=== PATIENT | male | born 1985 | race Caucasian/White ===

== ENCOUNTER 2016-10-15 09:23 | Inpatient (IN) | payer OTHER ==
[~2016-10-15] VITALS: Ht 180.3 cm; Wt 79.5 kg
--- NOTE | ~2016-10-15 | INDIVTXPL2 ---
"PATIENT: KRISTOPHER LANCASTER | | [facility] UNIT #: [id number] | [address] AGE/SEX: 31 M : 85 | [address] | [place] [address] ADMIT/REG DATE: 10/15/16 | ROOM: [facility] LOC: ADTC | ADTC | Individualized Treatment Plan DATE: 10/22/16 Problem Statement/Issue Identified: Client continues to use alcohol & drugs despite ongoing negative consequences. Goal: Client is to learn about alcoholism/drug addiction, identifying consequences of his use and learn how to work a stronger AA/NA program of recovery. Objectives/Activities to achieve goal: 1. Client is to fill out Getting Started and Step 1 packets, identifying 15 ways his use hurt others/self. Share with counselor and share selected pages in group. Due Date: 10/24/16 Complete: Incomplete: 2. Client is to get #'s of sponsors and call them weekly while in treatment. Report progress to counselor. (ask if they will help you work the steps) Due Date: ongoing Complete: Incomplete: 3. Client is to attend and Talk at AA/NA meetings, read and highlight in Big Book to make it a tool. Share progress with counselor. Due Date: ongoing Complete: Incomplete: Client Signature Date Counselor Signaure: Date Outcome/Measurement of Progress Towards Goal: Counselor Signature: Date "
--- NOTE | ~2016-10-15 | INDIVTXPL2 ---
"PATIENT: KRISTOPHER LANCASTER | | [facility] UNIT #: [id number] | [address] AGE/SEX: 31 M : 85 | [address] | [place] [address] ADMIT/REG DATE: 10/15/16 | ROOM: [facility] LOC: ADTC | ADTC | Individualized Treatment Plan DATE: 10/24/16 Problem Statement/Issue Identified: Client struggled with anxiety around crowds, and his self esteem/self confidence was damaged which can lead to desire to use or avoidance. Goal: Client is to build up his self esteem and self confidence, addressing anxiety issue to help strengthen his recovery. Objectives/Activities to achieve goal: 1. Client is to write list of 10 good qualities about himself and 5-10x that he was proud of himself to overcome anxiety. Share with counselor. Due Date: 10/31/16 Complete: Incomplete: 2. Client is to interview 7 peers and 3 staff to name 2 good qualities they see in him as he adds them to his list. Share with counselor. Due Date: 10/31/16 Complete: Incomplete: 3. Client can do EMDR on memory of 4th grade anxiety to help resolve anxiety issues. See counselor notes. Due Date: 11/07/16 Complete: Incomplete: Client Signature Date Counselor Signaure: Date Outcome/Measurement of Progress Towards Goal: Counselor Signature: Date "
--- NOTE | ~2016-10-15 | CLPRLASSUM ---
"PATIENT: KRISTOPHER LANCASTER | | [facility] UNIT #: [id number] | [address] AGE/SEX: 31 M : 85 | [address] | [place] [address] ADMIT/REG DATE: 10/15/16 | ROOM: [facility] LOC: ADTC | ADTC | Client Problem List/Assessment Summary Date: 10/22/16 Problems identified by the client: alcohol/drug addiction, family, relapse prevention, self-esteem, being healthy in relationship Problems identified by significant others: addiction, be more involved with family/kids Client's Strengths: good worker, friendly, good morals Problem List: Code: T Client continues to use alcohol & drugs despite ongoing negative consequences. Code: T Client is experiencing family & significant other discord and distancing as a result of past alcohol & drug usage. Code: T Client relapsed/returned to alcohol & drug usage after previous treatment attempts. Code: T Client needs to identify ways to improve self esteem to help maintain watermaster sobriety from all mood altering substances. Code Valadez: T: to be addressed during course of treatment O: problem noted, expected to resolve itself with abstinence--specific tx plan not required R: problem noted, will be referred upon discharge PRIMARY COUNSELOR: Laverne Salomon"
--- NOTE | ~2016-10-15 | TXPLANREV ---
"PATIENT: KRISTOPHER LANCASTER | | [facility] UNIT #: [id number] | [address] AGE/SEX: 31 M : 85 | [address] | [place] [address] ADMIT/REG DATE: 10/15/16 | ROOM: [facility] LOC: ADTC | ADTC | Treatment Plan/Staffing Review Date: 10/29/16 Treatment plan was reviewed and determined appropriate as written: yes, client is working on self-esteem assignments and will be doing EMDR therapy Treatment plan was reviewed and the following changes/addition/deletions are necessary: Discharge plans were reviewed and determined appropriate as previously documented: Discharge plans were reviewed and determined to be as follows: Client is to discharge on 11/12/16, will return to [facility] (has job) and is being referred to our [place] office with Colton Meneses for aftercare which is [address]. Also is to attend AA/NA 3x/week and call sponsor 3-7x/week. Other pertinent issues discussed during this staffing review include: Clients aftercare was discussed and he has completed the Family program with his S.O. 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 Staff Present: Florence Valdovinos, Trice Vela, Colton Meneses, Radha Wolf, Luis Asher PRIMARY COUNSELOR: Laverne Salomon Client Signature Counselor Signature Date Time "
--- NOTE | ~2016-10-15 | TXPLANREV ---
"PATIENT: KRISTOPHER LANCASTER | | [facility] UNIT #: [id number] | [address] AGE/SEX: 31 M : 85 | [address] | [place] [address] ADMIT/REG DATE: 10/15/16 | [facility]: [facility] | ADTC | Treatment Plan/Staffing Review Date: 11/05/16 Treatment plan was reviewed and determined appropriate as written: Client is working on relapse prevention and is to call sponsor and read spirituality book. Treatment plan was reviewed and the following changes/addition/deletions are necessary: Discharge plans were reviewed and determined appropriate as previously documented: Client is scheduled to discharge on 11/12/16 and is referred to aftercare counseling at our [place] office with Colton Meneses. He also is to attend 3 AA/NA meetings a week, and call sponsor(s) daily. Discharge plans were reviewed and determined to be as follows: Other pertinent issues discussed during this staffing review include: Client has made good progress, still struggles with anxiety speaking at meetings so could benefit from further EMDR therapy. Staff Present: Florence Valdovinos, Colton Meneses, Trice Vela, Radha Wolf, Olga Chadwick PRIMARY COUNSELOR: Laverne Salomon Client Signature Counselor Signature Date Time "
--- NOTE | ~2016-10-15 | INDIVTXPL2 ---
PATIENT: KRISTOPHER LANCASTER | | [facility] UNIT #: [id number] | [address] AGE/SEX: 31 M : 85 | [address] | [place] [address] ADMIT/REG DATE: 10/15/16 | ROOM: [facility] LOC: ADTC | ADTC | Individualized Treatment Plan DATE: 10/24/16 Problem Statement/Issue Identified: Client relapsed/returned to alcohol & drug usage after previous treatment attempts. Goal: Client is to learn about relapse prevention, identifying his top relapse triggers and how to avoid/cope with them to succeed in recovery. Objectives/Activities to achieve goal: 1. Client is to attend Relapse prevention class every Thursday 3-4pm and participate. See class note. Due Date: 11/11/16 Complete: Incomplete: 2. Client is to fill out Relapse Prevention packet, identifying top 5-10 relapse triggers (Develop plan of how to cope with boredom, anxiety, GI, etc) and discuss how to cope with counselor. See notes. Due Date: 11/12/16 or ongoing Complete: Incomplete: 3. Client can do EMDR on the "pull/craving" of his addiction triggers in treatment or aftercare as needed. Due Date: ongoing Complete: Incomplete: Client Signature Date Counselor Signaure: Date Outcome/Measurement of Progress Towards Goal: Counselor Signature: Date
--- NOTE | ~2016-10-15 | RESCARESUM ---
"PATIENT: KRISTOPHER LANCASTER | | [facility] UNIT #: [id number] | [address] AGE/SEX: 31 M : 85 | [address] | [place] [address] ADMIT/REG DATE: 10/15/16 | ROOM: [facility] LOC: ADTC | ADTC | Summary of Residential Care Primary [facility] Date of Admission: 10/15/16 Date of Discharge: 11/12/16 Referral Source: employment attorney and self Primary Care Provider Prior to Admission: no doctor listed Admitting Diagnosis: F15.20 Severe Stimulant use disorder, F12.20 Severe Cannabis use disorder, F10.10 Mild Alcohol use disorder and F17.20 Tobacco use disorder Discharge Diagnosis: same Goals Achieved: Client successfully completed Residential Treatment for addiction. 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 Client did complete Step 1 owning his powerlessness over alcohol/drugs. He did work on self-esteem and building more open communication with his S.O. plus they attended the Family program. He did write feelings letters and shared them. Client did work on Relapse prevention and did EMDR on the pull of addiction. Client also did EMDR on anxiety/childhood issue. Client did contact Uncle and sponsor in recovery and talked with them. Continued Obstacles to Sobriety/Relapse Issues: boredom, overconfidence, slack on meetings or think doesn't need meetings, not calling sponsor or not openly sharing with sponsor, not asking for help Family Issues Addressed: Client and his S.O. were involved in Family Program, letter writing and did have private family session. They live in separate towns but both seem to love each other and she wants him to stabilize in his recovery. They will benefit from further sessions together. 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 Reason For Discharge: PATIENT: KRISTOPHER LANCASTER | | [facility] UNIT #: [id number] | [address] [place] [address] AGE/SEX: 31 M : 85 | [address] | [place] [address] ADMIT/REG DATE: 10/15/16 | ROOM: [facility] LOC: ADTC | ADTC | Summary of Residential Care x Completed Residential TX Goals and Ready For Next Level of Care Left Tx Against Medical Advice/Treatment Goals Not Complete Completed Residential Tx Goals But Refusing Continuing Care Recommendations Discharged Due to Noncompliance/Treatment Goals not Completed Discharged Earlier Than Planned Due to: Continuing Care Plan/Recommendations: Intensive Partial Care x Sponsor Partial Care x AA Meetings/NA Meetings x Outpatient Co-dependency Services Therapeutic Community /[address] [facility] [address] Marriage Counseling Other Specific Continuing Care Plan: Client is being referred to Colton Meneses in our [place] office on 11/18/16 at 12pm. He is also referred to 3 AA/NA meetings a week and has a sponsor he is to call daily. PRIMARY COUNSELOR: Laverne Salomon"
--- NOTE | ~2016-10-15 | INDIVTXPL2 ---
"PATIENT: KRISTOPHER LANCASTER | | [facility] UNIT #: [id number] | [address] AGE/SEX: 31 M : 85 | [address] | [place] [address] ADMIT/REG DATE: 10/15/16 | ROOM: [facility] LOC: ADTC | ADTC | Individualized Treatment Plan DATE: 10/22/16 Problem Statement/Issue Identified: Client is experiencing family & significant other discord and distancing as a result of past alcohol & drug usage. Goal: Client is to learn about effects of addiction on family/self, and build more honest communication with family/spouse to strengthen his recovery. Objectives/Activities to achieve goal: 1. Client is to attend Family program and Thursday 2-4:45pm and participate. See family notes. Due Date: 10/27/16 Complete: Incomplete: 2. Client is to write feelings letter owning his addiction/feelings/behaviors and share with . See family note. Due Date: 10/27/16 Complete: Incomplete: 3. Client is to have family session to build honest communication with . See counselor note. Due Date: 10/31/16 Complete: Incomplete: Client Signature Date Counselor Signaure: Date Outcome/Measurement of Progress Towards Goal: Counselor Signature: Date "
--- NOTE | 2016-10-15 10:58 | NUR ---
Admit Note: Client was brought to tx by Mom. Has been living in [place] with her since bonded from detention (1 month). Said that he realizes that he needs help and this is 4th time in tx. DOC is meth last used 09/08/16 approx. 1 gram smoked. Second DOC is pot used occasionally. Said that alcohol is not an issue. Expects Mom, maybe Dad, sister and SO for family participataion.
--- NOTE | 2016-10-15 15:00 | NUR ---
SPIRITUALITY 1 HR: Clt participated in a spirituality exercise on both negative and positive spirituality.
--- NOTE | 2016-10-15 15:25 | NUR ---
Tech Note: Client watched "The Enablers" film and is working on the Big Book.
--- NOTE | 2016-10-15 16:30 | NUR ---
IS .5 hr/ Client and counselor got acquainted and went over his initial treatment plan. Client was clean 2 1/2 years (was 11 months at [facility] and on [address]). Client relapsed, moved to mom's in [facility] and drank 1x, but was off the meth and pot. 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 Client could do aftercare in [place] as wants to return [facility] and has good job there. Client has AA person and Uncle in recovery he can use for support so is to get their #'s and call weekly while in tx. Client said his S.O. Apr 2016 "she left" but [facility]. He said this is his 4th tx. He sees his town/environment as relapse trigger for him. (Theft Charge-felony) Is to work on GS packet.
--- NOTE | 2016-10-15 22:39 | NUR ---
Tech note: Client was checked into his room, seen by the DR and gave his first intro. client made a God box for rec and went to an onsite NA meeting. SE; Entering treatment
--- NOTE | 2016-10-16 04:36 | NUR ---
Bed note: Client was in bed with eyes closed and no distress at all bed checks.
--- NOTE | 2016-10-16 12:53 | NUR ---
Group 1.5 Hr Ratio 1:12/Topics today were orientating a new member to group and male roles adn being in charge. Client shared standing up for our selves can get us in trouble. He was also orientated to group rules and goals.
--- NOTE | 2016-10-16 15:46 | NUR ---
Tech Note: Client attended Spiritual Enrichment. Client stated that he is working on, "How to Get Started in Treatment."
--- NOTE | 2016-10-16 16:19 | NUR ---
Education: Client heard a speaker on the topic of, "Shame."
--- NOTE | 2016-10-16 16:20 | NUR ---
step education/1 hr/ focus was on step 8 "Made a list of all persons we had harmed, and became willing to make amends to them all. This person participated and shared the relationship that needs most healing in their life is with kids mom.
--- NOTE | 2016-10-16 18:26 | NUR ---
EDUCATION NOTE: Client attended a one hour education on "Don't Meth With Me".
--- NOTE | 2016-10-16 23:31 | NUR ---
TECH NOTE: Client went on long walk for Recreation, attended Guided Meditation and the in house AA Meeting.
--- NOTE | 2016-10-17 12:40 | NUR ---
Group 1.5 Hr Brittany 1:11/Topics today were two step ones, a getting started packet, a feelings letter and a new member was orientated to group rules and goals. Client shared how he could relate to peers and how simple but hard it is to stay clean and sober.
--- NOTE | 2016-10-17 14:30 | NUR ---
IS 1.5 hr/ Client did have GS done and counselor went over it and selected pages to share, was given step 1. He is glad to be in treatment and shared more about his S.O. in [place] who has their 2 babies. Did call her and discussed having family session.
--- NOTE | 2016-10-17 16:17 | NUR ---
Tech Note: Client watched "The Disease of Addiction" and is working on Getting Started.
--- NOTE | 2016-10-17 16:45 | NUR ---
FAMILY CONTACT- DID call his S.O. and invited to family program and will likely only be at one, and did set up family session private for 10/22, she will likely bring kids. She says has 10/20 off.
--- NOTE | 2016-10-17 20:33 | NUR ---
TECH NOTE: Client attended reading the Guidelines, watched TV and attended the off site AA Meeting. S/E: Counseling session
--- NOTE | 2016-10-18 04:39 | NUR ---
tech note: client was motionless in no distress at all bed checks.
--- NOTE | 2016-10-18 16:20 | NUR ---
Tech Note: Client attended an off-site AA meeting. Client stated that he was working on Step One. Client received visits.
--- NOTE | 2016-10-18 21:30 | NUR ---
TECH NOTE: Client played a game for Recreation, watched TV, went to off site AA Mtg. S/E:Visit
--- NOTE | 2016-10-19 03:33 | NUR ---
Client was in bed and motionless with no distress at all bed checks
--- NOTE | 2016-10-19 15:43 | NUR ---
Tech Note: Client stated that he is working on Step One. Client received visitors.
--- NOTE | 2016-10-19 19:27 | NUR ---
Tech note: Client watched tv and movies, attended AA panel, and participated in Community Clean
--- NOTE | 2016-10-20 04:29 | NUR ---
Bed Note: Client was in bed and motionless with no signs of distress at all bed checks
--- NOTE | 2016-10-20 09:47 | NUR ---
Tech note: Client is working on Step 1
--- NOTE | 2016-10-20 12:39 | NUR ---
A.M. res group 1 hr/ratio 1:10/ Group heard 2 getting started aassignments and issues were shared. This client shared his how to get started assignment and did a good job. 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
--- NOTE | 2016-10-20 12:54 | NUR ---
Education Note: Client attended speaker Marcel Corrigan
--- NOTE | 2016-10-20 16:00 | NUR ---
RECOVERY 101 1 HR/ Clients all filled out questionaire on symptoms of addiction/loss of control to look at other chemicals they used or abused besides their drug of choice to help dispell any minimizing/denial with other chemicals. Clients discussed stages of addiction, symptoms of early stages and a definition of addiction that includes all stages.
--- NOTE | 2016-10-20 18:04 | NUR ---
Education: 1 Hour. Client attended "Adult Children of Alcoholics" lecture presented by staff.
--- NOTE | 2016-10-20 22:22 | NUR ---
TECH NOTE: Client played a game for Recreation and attended NA Meeting. S/E: Speaker, NA
--- NOTE | 2016-10-21 04:52 | NUR ---
BED NOTE: Client was lying motionless, with eyes closed at all bedchecks.
--- NOTE | 2016-10-21 11:30 | NUR ---
Morning Group, 1.0 hours, 03/19 ration, Client attended and actively participated in group which focused on homework shared and problems going on among the clients.
--- NOTE | 2016-10-21 13:09 | NUR ---
Tech Note: Client attended informational speaker meeting put on by [facility]. Client is working on the Big Book.
--- NOTE | 2016-10-21 15:00 | NUR ---
RELAPSE PREVENTION 1 HR: Clt participated in relapse prevention exercise.
--- NOTE | 2016-10-21 21:52 | NUR ---
Education: 1 hour lecture given by counselor on "resentments"
--- NOTE | 2016-10-21 23:14 | NUR ---
Client did beads for rec, Guided Meditation, and attended the on unit A.A.Meeting. SE: Trice's Lecture
--- NOTE | 2016-10-22 04:44 | NUR ---
Bed Note: Client was in bed, motionless, and in no distress at all bed checks
--- NOTE | 2016-10-22 09:53 | NUR ---
Tech Notes: Client is working on Fl's and mtg with amy
--- NOTE | 2016-10-22 11:30 | NUR ---
PEER REVIEW 1.5 HRS. Client participated in peer review exercise and took risk to give honest and direct feedback.
--- NOTE | 2016-10-22 13:08 | NUR ---
Education note: Client attended speaker for education.
--- NOTE | 2016-10-22 15:00 | NUR ---
SPIRITUALITY 1 HR: Clt participated in an exercise in the park, along with filling out a paper on what a Higher Power means to them.
--- NOTE | 2016-10-22 17:06 | NUR ---
IS 1.5 hr/ Client and counselor did go over BPS and did set up treatment planning for the remainder of his treatment. He is assigned to write feelings letters now, did get step 1 done and is to share in group this week. Client denies trauma however he did have self-esteem struggles growing up with being overweight and slow reader, still is shy and avoids reading. Client is to push self to read and is to get #'s of his sponsors this . Will start Family program this . Did discuss strong voodoo involvement as kid and would like to get back involved for his kids, but had distanced self due to anger at old preventive maintenance coordinator, but now they have new person and grandma goes to different voodoo he would like to try due to younger crowd.
--- NOTE | 2016-10-22 17:09 | NUR ---
TRAUMA NOTE- client denies trauma, he does admit struggles with self-esteem when younger was hard on self had hard time reading and avoids reading in front of others still (plus was chubby).
--- NOTE | 2016-10-22 18:36 | NUR ---
Education note: Client did one hour of education on the disease concept.
--- NOTE | 2016-10-22 22:45 | NUR ---
Tech Note: Client Walked a mile for rec and attended the on unit N.A.Meeting. SE: Trice's Lecture
--- NOTE | 2016-10-23 04:02 | NUR ---
Bed bote; Client was motionless with eyes closed at all bed checks.
--- NOTE | 2016-10-23 12:33 | NUR ---
Group 1.5 Ratio 1:12/Topics today were orientating a new member to group rules and goals and grumbling about the legal system not being fair. Client shared even if the courts or legal system does not do the right thing we put our selves here.
--- NOTE | 2016-10-23 15:28 | NUR ---
Tech Note: Client participated in Spiritual Enrichment. Client stated that he is working on writing Feelings Letters.
--- NOTE | 2016-10-23 15:48 | NUR ---
Education: Client attended a session hosted by members of the recovery community who shared their experience, strength and hope.
--- NOTE | 2016-10-23 17:09 | NUR ---
FAMILY EDUCATION 3 hrs. Client attended alone and took part in the discussion on the disease concept. Client shared chemical history and the consequences.
--- NOTE | 2016-10-23 18:16 | NUR ---
Education: 1 Hour. Client attended Stephen Tanner video "Unhealthy Boundaries."
--- NOTE | 2016-10-23 22:08 | NUR ---
Tech note : Client went on a mile and a half long walk, participated in guided meditation and went to an onsite AA meeting. SE; Family
--- NOTE | 2016-10-24 04:17 | NUR ---
tech note: client was motionless in no distress at all bed checks.
--- NOTE | 2016-10-24 12:00 | NUR ---
Group 1.5 hr/ 22:2 Clients had big group to discuss what is giving and getting feedback, group dynamics and how to listen and not get defensive. Some role-playing was used by counselors. This client was attentive and involved in feedback.
--- NOTE | 2016-10-24 14:00 | NUR ---
Afternoon Group, 1.0 hours, 03/19 ratio, Client attended and actively participated in group which consisted of homework shared and discussion of taking suggestions from others while in treatment. Client listened to others share.
--- NOTE | 2016-10-24 15:18 | NUR ---
Tech Note: Client attended speaker meeting with volunteer Gerhard Lucio Client is working on the [employer] Book.
--- NOTE | 2016-10-24 16:12 | NUR ---
IS 1 hr/ Client and counselor discussed his assignments, is finishing up step 1 and wrote feelings letter to S.O., owned his addiction, loss of control, feelings and cried. Did a great job. He wants recovery. Is to write letters to kids also.
--- NOTE | 2016-10-24 20:41 | NUR ---
Tech note: client watched tv and movies Attended optional offsite AA meeting SE:speaker
--- NOTE | 2016-10-25 04:24 | NUR ---
Bed note: client was in bed with eyes closed and no distress at all bed checks.
--- NOTE | 2016-10-25 13:13 | HP ---
ADMIT: 10/15/2016 RM/LOC: [facility] MR#: [id number] [facility] [place], [place] [id number] KRISTOPHER LANCASTER [address] [place] [place] [address] History and Physical SEX: M AGE: 31 : 1985 DATE OF SERVICE: CHIEF COMPLAINT: Recurrent legal problems related to his ongoing drug use. CLINICAL HISTORY: The patient is a 31-year-old white male who was admitted to the residential care program with [facility] for treatment of his methamphetamine use disorder and cannabis use disorder, noting that this is his fourth time in treatment. Most recently, he was in treatment in 2011, getting out in March 2012. Following completion of treatment at that time, the patient went to the [facility] and was there for 11-1/2 months. He then also getting out of the [facility] [facility], had his own place in [place] for approximately 4 to 5 months when he got off drug court. Once he was off the drug court, he did not have to do UAs anymore. He started smoking pot and using meth and was progressed back into daily meth and pot use. For the last 2 years, the patient notes that he had completed treatment and had actually almost 2-1/2 years of sobriety in total before he relapsed. He relapsed 2 years ago initially on pot and then on both pot and meth. He notes that his drug of choice is methamphetamine. He first started using meth at around age 17 and has been a daily user off and on for most of his adult life. He has been using for the last 8 years. His longest period of sobriety was following that treatment in 2011. He also had been to treatment here previously on two other occasions prior to that. The patient notes that when he uses meth, he typically smokes it. He denies any IV use. Average day would be to use at least 1 g, but he has plenty to use. He has used up to as much as 2 g per day. In addition to his daily meth use, he is a daily pot user, typically smoking about one-eighth of an ounce of pot per day. He has been using marijuana since age 16. He notes very limited use of alcohol, occasionally having a couple of drinks or shots of hard liquor, but does not really like to drink and does not like to get intoxicated. He notes he has tried cocaine on a couple of occasions. He used inhalants on a rare occasion. He denies any abuse of prescription drugs. No use of opiates. His drugs of choice have always been meth and pot. It has been his ongoing meth and pot use that has led to his recurring legal difficulties. He notes that he has past history of burglary charges, forgery, possession, and DUI. He did go through drug court program the last time he was in treatment in 2011. He currently has charges pending for theft, shoplifting, and criminal mischief. It is his current legal problems that have once again motivated him to seek treatment. He is admitted at this time for treatment of his methamphetamine use disorder and cannabis use disorder. PAST MEDICAL HISTORY: Previous hospitalizations: The patient has had three prior admissions to the residential care program, two in 2011. He was at the [facility] in February 2012 to March 2012. He had also been in the [facility] in September and October 2011. Prior to that, he has been in treatment here when he was age 18. He has had no other hospitalizations. PAST SURGICAL HISTORY: His only prior operation was an eye surgery as a child for amblyopia. No other surgical procedures. ADMIT: 10/15/2016 RM/LOC: [facility] MR#: [id number] [facility] [place], [place] [address] KRISTOPHER LANCASTER [facility] [place] [place] [address] [place] [id number] History and Physical SEX: M AGE: 31 : 1985 CURRENT MEDICATIONS: None. ALLERGIES: NONE KNOWN. MEDICAL ILLNESSES: He denies all medical problems. Does note he is a smoker. Also uses some chewing tobacco as well. REVIEW OF SYSTEMS: A 12-point review of systems is, otherwise, negative with no significant cardiac, pulmonary, GI, , musculoskeletal, or neurologic problems. SOCIAL HISTORY: The patient notes that he from his significant other. He notes that when he relapsed, she moved out of their home and moved back in with her father in [place]. He notes that he has been with his significant other for a number of years. They have three children, a 7-year- old daughter, a [id number]-old son, and an 8-month-old daughter. The patient notes that he does have a high school degree and then went to [employer] for 2 years, getting an associates degree in heating and air conditioning. He currently is unemployed having lost his last job because of his ongoing use and absenteeism from work. FAMILY HISTORY: The patient notes that his parents are . They in 2004. He notes he has an older sister. He notes the only family history he is aware of is a maternal uncle. He was an alcoholic and an addict as well. That uncle is now on recovery. PHYSICAL EXAMINATION: VITAL SIGNS: His temperature is 96.9, pulse 87, respirations 12, and blood pressure 136/79. Height 5 feet 11 inches. His weight is 174 pounds. GENERAL: The patient is a 31-year-old male who appears his stated age. He is in no acute distress. He is oriented x3. HEENT: Unremarkable at this time. Ears are clear. Nose and throat noninflamed. Oropharynx normal. Pupils are equal and reactive. Sclerae nonicteric. Conjunctivae noninflamed. NECK: Supple. Thyroid not enlarged. No cervical adenopathy. LUNGS: Today are noted to be clear. HEART: Regular rhythm without murmur. ABDOMEN: Soft, nontender, thin, scaphoid. No masses. No organomegaly. No hernias. Bowel sounds are normoactive. He has no CVA or suprapubic tenderness. EXTREMITIES: Normal to gross exam. No clubbing or cyanosis. No calf tenderness. NEUROLOGICAL: He is intact with no focal deficit. Balance and gait are normal. Cranial nerves II through XII are grossly intact. MENTAL STATUS EXAMINATION: He is pleasant and cooperative. Affect is appropriate. He has no bizarre ideation. No delusions. No significant depressive symptoms. He is oriented x3. He is of average intelligence. His ADMIT: 10/15/2016 RM/LOC: [facility] MR#: [id number] [id number] [facility] [place], [place] [address] KRISTOPHER LANCASTER [facility] [place] [place] [address] [place] [address] History and Physical SEX: M AGE: 31 : 1985 insight is limited. Judgment is guarded. ASSESSMENT: At the time of admission: 1. Stimulant/methamphetamine use disorder, severe. 2. Cannabis use disorder, severe. 3. Alcohol use disorder, mild. 4. Tobacco use disorder, moderate. PLAN: The plan is to admit the patient to the residential care program with tentative discharge date of 11/12/2016 upon completion of treatment, but once again, recommend that he go to a assisted house. This worked well for him following his last treatment in 2011. Spike Meneses MD/ anurag JOB #: [id number] CC: Spike Meneses, Attending Physician UNKNOWN, Family Physician
--- NOTE | 2016-10-25 15:13 | NUR ---
Tech notes: Client attended NA panel and is working on BB. Had visitor
--- NOTE | 2016-10-25 20:29 | NUR ---
Tech Note: Client played "5 Second Rule Game" for Recreation and attended an outside AA Speaker Meeting at [address]. S/E: Visit
--- NOTE | 2016-10-26 04:02 | NUR ---
tech note: client was motionless in no distress at all bed checks. Client did get up for a PRN for a headache @ 0208.
--- NOTE | 2016-10-26 16:13 | NUR ---
Tech Note: Client participated in Big Book study and is working on Feelings Letters.
--- NOTE | 2016-10-26 23:22 | NUR ---
TECH NOTE: Client attended AA Panel, participated in community clean, watched TV and movies S/E: AA Panel
--- NOTE | 2016-10-27 04:56 | NUR ---
BED NOTE: Client lying motionless, with eyes closed at all bedchecks.
--- NOTE | 2016-10-27 10:23 | NUR ---
Tech Notes: Client is working on BB
--- NOTE | 2016-10-27 12:58 | NUR ---
Education/1 hr/ Focused on looking at clients character defects and we read "The Wall" and then they each sven their wall and explained them to the group. This client participated.
--- NOTE | 2016-10-27 14:10 | NUR ---
Education Note: Client watched video for education,
--- NOTE | 2016-10-27 18:28 | NUR ---
Education note: 1 hour lecture on communication given by counselor
--- NOTE | 2016-10-27 21:00 | NUR ---
FAMILY EDUCATION 3 HRS., GROUP 2 HRS. 1:5 Client was accompanied by the mother of his 2 kids. They took part in the discussion on the family roles, codependency and detachment. Client identified with lost child and mascot roles. Both shared excellent feelings letters where they owned feelings and identifed specific behaviors. She set clear boundary with client that she will support him in recovery for the sake of the kids but too much damage has been done to repair their relationship. She is encouraged to continue with her own counseling. She indicates she is taking anti-depressant and blamed client for her depression and suicial thoughts.
--- NOTE | 2016-10-27 22:56 | NUR ---
Tech note: family all evening SE:family
--- NOTE | 2016-10-28 03:47 | NUR ---
Bed note: client was in bed with eyes closed and no distress at all bed checks.
--- NOTE | 2016-10-28 10:36 | NUR ---
Tech Note: Client participated in light stretching for morning exercise. Client stated that he is working on interviewing 7 peers and 3 staff to record 2 good qualities about himself from each.
--- NOTE | 2016-10-28 14:13 | NUR ---
Education: Client viewed a video presentation, "The Enablers."
--- NOTE | 2016-10-28 15:44 | NUR ---
Morning Group, 1.0 hours, 03/18, Client attended and actively participated in group discussion which focused on homework shared and how to forgive family members who have not supported them in recovery. Client shared how losing his daughters trust had affected him.
--- NOTE | 2016-10-28 16:22 | NUR ---
Relapse prevention, 1.0 hours, Client attended and actively participated in relapse prevention education which focused on developing a relapse prevention plan.
--- NOTE | 2016-10-28 19:38 | NUR ---
Education: 1 hour lecture on "Step 1" given by counselor
--- NOTE | 2016-10-28 23:09 | NUR ---
Client worked with merced for recreation, participated in guided meditation, attended the on unit A.A.Meeting.
--- NOTE | 2016-10-29 04:08 | NUR ---
Bed Note: Client was in bed and motionless with no sign of distress at all bed checks
--- NOTE | 2016-10-29 11:56 | NUR ---
AM GROUP 10:03/09.5 HR: Client and peers welcomed and ORIENTED TWO NEW MEMBERS TO GROUP PURPOSE, GUIDELINES, GOALS AND OBJECTIVES. The group heard two individuals process assignments, while this client related to the "high" described by a male peer for the stealing he has done to support his habit but also because he enjoyed the euphoria of "the risk and getting away with it." He was otherwise attentive.
--- NOTE | 2016-10-29 14:30 | NUR ---
Tech Note: Client participated in light stretching for morning exercise and went on an outdoor walk in the afternoon. Client stated that he is working on reading the Big Book.
--- NOTE | 2016-10-29 15:00 | NUR ---
IS 1 hr/ Discussed clients aftercare, will see [facility] in [place] 2x/month, maybe weekly to start. Client will be doing EMDR therapy next session, he relates to the pull of his addiction that he would like help with. Did go over his step 1 and he owns his powerlessness. Did discuss plan to get #'s to call of sponsor and uncle while in treatment and needs to start this this weekend. Finish writing feelings letters.
--- NOTE | 2016-10-29 15:00 | NUR ---
SPIRITUALITY 1 HR: Clt participated in a quiz about spiritual principals and interacted with the grp.
--- NOTE | 2016-10-29 15:05 | NUR ---
Education: Client saw the video, "Chalk Talk" by Father Santos.
--- NOTE | 2016-10-29 22:47 | NUR ---
Tech note : Client went on a mile and a half walk for rec and attended an onsite NA meeting. SE; NA
--- NOTE | 2016-10-30 04:24 | NUR ---
Bed note : Client was in bed motionless with eyes closed at all bed checks.
--- NOTE | 2016-10-30 10:19 | NUR ---
Tech note: Client is working on Relapse Prevention
--- NOTE | 2016-10-30 11:41 | NUR ---
Group 1.5 Hr Ratio 1:12/Topics today were orientating new members to group rules and goals and talking about what is on everyones mind. Client shared he is concerned about being so far away from his kids as he will be in [place] and his kids are in [place]. Client wants to do aftercare in [place].
--- NOTE | 2016-10-30 13:08 | NUR ---
Education note: Client attended education speaker
--- NOTE | 2016-10-30 16:49 | NUR ---
Education 1 hr/Focus was on step 10 taking personal inventory. They completed a worksheet and then we discussed. This client participated.
--- NOTE | 2016-10-30 18:48 | NUR ---
Education: 1 Hour. Client attended "Healthy Family" video.
--- NOTE | 2016-10-30 23:01 | NUR ---
TECH NOTE: Client played a game for Recreation, participated in Guided Meditation and attended in house AA Meeting. S/E:
--- NOTE | 2016-10-31 04:59 | NUR ---
tech note: Client looked at tech at second bed check,client was motionless in no distress at all other bed checks.
--- NOTE | 2016-10-31 12:00 | NUR ---
Group 1.5hr/ 11:1 Clients all oriented peer to group rules and shared what motivates them with recovery for themselves plus what they need help with while here. This client shared openly.
--- NOTE | 2016-10-31 15:00 | NUR ---
Family Session 1 hr and IS for EMDR .5 hr/ Client and counselor did do EMDR for relaxation after the family session. Client seems to respond well to EMDR. Client and his were present for family session and had attended the family program together this past week. She left him due to his drugging but tried to make it work staying longer than she probably should have. She was tearful as she shared a 2nd letter she wrote, owning how much he hurt her with his use, his distancing, his not being there for them, his love for drugs as being #1 instead of their family, etc. She did good job owning her feelings and was praised for this. She says she has up a wall as fears getting hurt again, she fears falling back in love with him if he would relapse again so she says it will take time to trust she won't get hurt. Client understands and shared that he did it for court last time and didn't plan to quit pot, thought pot was ok but once used it eventually got back on meth. He also heard from her how Selfish he was on pot for that 6 months before he started back on meth and he agrees, pot is just as bad and destructive to his life. Now he wants full sobriety for himself and likes AA, is to get and use sponsor this weekend. She is in counseling too and was encouraged to start Alanon and could even go to open AA/NA meeting. She said her Aunt would like to join him for one of the meetings and he was glad. Client owned ashamed and sad feelings, that he has fear too. They both did amazing with feelings. He was releaved she still wants to give relationship a chance cause didn't get to explain something she said before she left Thursday. He was TEARY EYED too!!!
--- NOTE | 2016-10-31 15:35 | NUR ---
Tech Note: Client went on outdoor walk, for exercise, attended a speaker session on Cross Addiction (Agustín Talbert) and is working on Relapse Prevention.
--- NOTE | 2016-10-31 23:14 | NUR ---
Tech Note: Client visited with peers and attended the A.A. Step Meeting at [address]. SE: Counseling
--- NOTE | 2016-11-01 04:13 | NUR ---
tech note: client was motionless in no distress at all bed checks.
--- NOTE | 2016-11-01 16:10 | NUR ---
Tech Note: Client went to offsite AA meeting and is working on Relapse Prevention. He had visitors.
--- NOTE | 2016-11-01 21:17 | NUR ---
tech note:worked on beaded projects for rec and walked to AA meeting. Watched TV and movies SE:visits
--- NOTE | 2016-11-02 04:47 | NUR ---
bed note: client was in bed with eyes closed and no distress at all bed checks.
--- NOTE | 2016-11-02 16:00 | NUR ---
Tech Note: Client participated in Big Book study and is working on Relapse Prevention. He had visitors.
--- NOTE | 2016-11-02 22:54 | NUR ---
Tech note: client attended AA panel, Participated in Community clean and watched tv and movies. SE:visits
--- NOTE | 2016-11-03 04:07 | NUR ---
Bed Note: client was in bed with eyes closed and no distress at all bed checks.
--- NOTE | 2016-11-03 10:01 | NUR ---
Tech notes: Client is working on Shame FaceRosario.
--- NOTE | 2016-11-03 12:00 | NUR ---
Experiential Group 1.5 hr/ 2:20 Clients all participated in family sculpturing by role-playing, sharing, relating. This client was attentive and involved.
--- NOTE | 2016-11-03 13:33 | NUR ---
Education note: Client watched a video for education today.
--- NOTE | 2016-11-03 16:00 | NUR ---
Recovery 101 1 hr/ Clients all were given highlighters and discussed topics in the Big Book on: anger, resentments, 12 promises, forgiveness, 1/2 measures, honesty, selfishness and fear. Discussed that AA is grandpa to NA so offers alot of wisdom.
--- NOTE | 2016-11-03 18:00 | NUR ---
Education: 1 Hour. Client attended "Feeings" lecture.
--- NOTE | 2016-11-03 18:08 | NUR ---
Education: 1 Hour. Client attended "Feelings" lecture.
--- NOTE | 2016-11-03 23:34 | NUR ---
tech note: Client played Pictionary for recreation and attended onsite NA meeting. SE: Orientation.
--- NOTE | 2016-11-04 04:20 | NUR ---
tech note: client was motionless in no distress at all bed checks.
--- NOTE | 2016-11-04 11:07 | NUR ---
Tech Note: Client participated in light stretching for morning exercise client stated that he is working on, "Rosario' Thinkin."
--- NOTE | 2016-11-04 11:30 | NUR ---
IS 1.5 hr/ Client and counselor went over Relapse Prevention packet, client did good job, has 1 more page to complete. He has hardest time asking for help so is to share this struggle with 5 people (AA/NA, staff, peers) and seek their advice of how to change this. Client and counselor did EMDR therapy on his Anxiety, he had experience as child in 2nd grade where had hard time reading, made mistake and kids laughed. He also was held back to redo 2nd grade so was hurt that he missed out on being with those friends, "felt Stupid" and mad his parents/school staff would do such a hurtful thing as they all met with him to discuss this. Client rated it a 7 but as kid it was a 9-10. Did get in touch with that, felt afraid and hurt, then got in touch with his anger which he had forgot. Client also confronted staff/parents in imagery with EMDR and comforted little 7 year old self which he got teary eyed as did that. Client found EMDR very beneficial, it got down to a 2-3. Also addressed his fear with speaking in AA/NA meetings, he said when they call people to speak he starts "freaking out", mind goes blank, hear pounds and hands sweat. Gave him an image of little self holding his hand and encouraging him (which he had this image of confident/not afraid little self) and client like this, felt good and made him feel he has confidence and said "whatever, if it happens it happens" so felt better about speaking. Client is still reading Shame Faced and Stinking Thinking.
--- NOTE | 2016-11-04 14:43 | NUR ---
Education: Client saw the video,"It Can't Happen to Me."
--- NOTE | 2016-11-04 15:00 | NUR ---
Relapse Prevention, 1.0 hours, Client attended and actively participated in relapse prevention education which focused on relapse justifications and how to avoid them.
--- NOTE | 2016-11-04 18:28 | NUR ---
Education: 1 Hour. Clients attended "Boudaries" Lecture.
--- NOTE | 2016-11-04 22:50 | NUR ---
Tech Note: Client played a pictionary for recreation, participated in Guided Meditation, and attended the on unit A.A.Meeting. SE: HERMES
--- NOTE | 2016-11-05 04:04 | NUR ---
tech note: client was motionless in no distress at all bed checks.
--- NOTE | 2016-11-05 10:12 | NUR ---
Tech Note: Client participated in light stretching for morning exercise. Client stated that he is working on, "Shame Faced."
--- NOTE | 2016-11-05 11:30 | NUR ---
GROUP 1.5 HRS. 1:11 Client assisted in orienting new peers to purpose and rules of group. Client and this peer processed goodbye letters to the disease. All participated in an exercise of what they need to say to the addiction.
--- NOTE | 2016-11-05 13:44 | NUR ---
Education: Client watched the video, "Pleasure Unwoven."
--- NOTE | 2016-11-05 16:46 | NUR ---
SPIRITUALITY 1 HR. Clients participated in reading, YOU ARE SPECIAL by Thony Foster. All listed their "stars" (positive messages) and "dots" negative messages) and shared with group and were assigned to also share with primary counselor.
--- NOTE | 2016-11-05 18:24 | NUR ---
Education note: Client recieved education from a sofa back upholsterer on sterps 2 & 3
--- NOTE | 2016-11-05 23:11 | NUR ---
Tech note: Client went on a walk for rec and attended an onsite NA meeting. SE; NA
--- NOTE | 2016-11-06 04:27 | NUR ---
Bed note : Client was motionless with eyes closed at all bed checks.
--- NOTE | 2016-11-06 11:51 | NUR ---
Group 1.5 Hr Ratio 1:12/Topics today were orientating new members to group rules and goals, making changes and letting down valdez. Client shared how he went through DCand did well for a coulpe years and got complaicent and relapsed.
--- NOTE | 2016-11-06 15:19 | NUR ---
Tech Note: Client watched 2nd half of Pleasures Unwoven and is working on the Big Book.
--- NOTE | 2016-11-06 15:53 | NUR ---
12 step education/1 hr/ Focus was on step 11 "Sought through prayer and meditation to improve our concious contact with God". Had them answer questions on a worksheet and then we discussed. This client said he does pray.
--- NOTE | 2016-11-06 23:16 | NUR ---
Tech Note: Client played a game for recreation, participated in Guided Meditation, and attended the on unit A.A.Meeting. SE: A.A.Meeting
--- NOTE | 2016-11-07 04:04 | NUR ---
Bed note: client was in bed with eyes closed and no distress at all bed checks.
--- NOTE | 2016-11-07 09:20 | NUR ---
IS 1 hr/ Did go over last page of Relapse packet, is reading Shame faced for next session and did interview others on how to use sponsor and got some good feedback. Client was given some spiritual readings on anxiety/fear as still struggles with this. He did share about a time of self-confidence so encouraged him to focus on those good feelings and experience and can tap that with EMDR reinforcing positive experiences. Client appreciates EMDR and said it did help lessen anxiety some.
--- NOTE | 2016-11-07 12:36 | NUR ---
Group 1.5 Hr Ratio 1:11/Topics were orienntating two new members to group rules and goals. A Life Managemment and Getting Started assignment were processed. Also clients shared why they are in treatment. Client shared how he is concerned about a peer that talked about how he did not get high enough the last time. He is here to turn his life around.
--- NOTE | 2016-11-07 16:11 | NUR ---
Tech Note: Client watched Part 2 of Alex Russo's "Predator" and is working on the Big Book.
--- NOTE | 2016-11-07 16:33 | NUR ---
PEER REVIEW 1.5 HRS. Client participated in peer review exercise and took risk to give honest and direct feedback. Client had a peer review done and some of what he heard was he holds alot of resentments, tries to follow the crowd, terrified of success, afraid, carries shame and takes pride in himself.
--- NOTE | 2016-11-07 20:28 | NUR ---
Tech note: Watched tv and movies SE:peer review
--- NOTE | 2016-11-08 04:34 | NUR ---
Bed note: client was in bed with eyes closed and no distress at all bed checks
--- NOTE | 2016-11-08 16:18 | NUR ---
TECH NOTE: Client attended NA Panel and working on BB and had a visit
--- NOTE | 2016-11-08 22:59 | NUR ---
Tech note : Client played catch phrase for rec, watched the football game and walked to an offsite AA meeting. SE; football game
--- NOTE | 2016-11-09 04:03 | NUR ---
tech note: client was motionless in no distress at all bed checks.
--- NOTE | 2016-11-09 14:59 | NUR ---
Tech note: Client attended BB study and is working on BB
--- NOTE | 2016-11-09 23:36 | NUR ---
Tech Note: Client attended the A.A.Panel and participated in community clean. SE: Thanh
--- NOTE | 2016-11-10 05:07 | NUR ---
tech note: client was motionless in no distress at all bed checks.
--- NOTE | 2016-11-10 16:03 | NUR ---
TECH NOTE: Client attended an off-site AA meeting, watched TV and had a visit.
--- NOTE | 2016-11-10 22:36 | NUR ---
tech note:client went on walk for recreation & attended onsite NA meeting.Client talked on the phone. SE: visit.
--- NOTE | 2016-11-11 05:07 | NUR ---
Bed Note; Client was motionless with eyes closed at all bed checks.
--- NOTE | 2016-11-11 12:52 | NUR ---
[place] 1.5 hr group/ratio 1:9/ Group heard assignments of getting started, also discussed dealing with the past with child support, grief issues and being their for kids and the lack of. This client related a lot to peer sharing and had some good input.
--- NOTE | 2016-11-11 14:40 | NUR ---
Education: Client attended a presentation on AIDS, HIV and STDs.
--- NOTE | 2016-11-11 15:00 | NUR ---
IS 1 hr/ Client and counselor discussed his progress and his aftercare planning. Did go over Relapse Prev.Packet and discussed how to avoid relapse. Did do EMDR on if smelled/saw pot at a house and focussed on his supportive AA/family/friends applauding him to not use. Client has been calling his sponsor. Was given medallion and is to do Survey. Will see [place]ton in [place] next Thursday.
--- NOTE | 2016-11-11 17:55 | NUR ---
Relapse Prevention, 1.0 hours, Client attended and actively participated in relapse prevention education which focused on giving up controll.
--- NOTE | 2016-11-11 18:25 | NUR ---
Education: 1 hour lecture given by counselor on "Co-Dependency"
--- NOTE | 2016-11-11 23:32 | NUR ---
Tech note: Client went for a walk, attended an alumni meeting, participated in guided meditation and went to an onsite AA meeting. SE; Last night
--- NOTE | 2016-11-12 04:24 | NUR ---
Bed note: Client was in bed with eyes closed and no distress at all bed checks
--- NOTE | 2016-11-12 07:40 | NUR ---
DISCHARGE NOTE Client left tx with his ride, all personal belonings were sent with. Discharge instructions gone over and copy given.
== END 2016-11-12 08:49 | disposition home or self-care (01) | DRG 895 ==
LOC: ADTC 09:51
PROVIDERS: ADMIT Family Medicine
DX: F15.20 Other stimulant dependence, uncomplicated (principal); F12.20 Cannabis dependence, uncomplicated; F10.10 Alcohol abuse, uncomplicated; F17.210 Nicotine dependence, cigarettes, uncomplicated; F17.220 Nicotine dependence, chewing tobacco, uncomplicated; Z56.0 Unemployment, unspecified; Z63.72 Alcoholism and drug addiction in family; Z65.3 Problems related to other legal circumstances